=== PATIENT | female | born 1975 | race American Indian/Alaskan Native ===

== ENCOUNTER 2018-11-27 07:25 | Outpatient (CLI) | payer OTHER | END 2018-11-27 07:26 | disposition home or self-care (01) | LOC: LAB 07:25 ==

== ENCOUNTER 2019-01-28 14:20 | Outpatient (CLI) | payer OTHER | END 2019-01-28 14:21 | disposition home or self-care (01) | LOC: RAD 14:20 ==

== ENCOUNTER 2019-02-05 06:54 | Outpatient (CLI) | payer OTHER | END 2019-02-05 06:55 | disposition home or self-care (01) | LOC: LAB 06:54 ==

== ENCOUNTER 2019-02-12 14:23 | Outpatient (CLI) | payer OTHER | END 2019-02-12 14:24 | disposition home or self-care (01) | LOC: LAB 14:23 ==

== ENCOUNTER 2019-02-15 14:04 | Outpatient (CLI) | payer OTHER | END 2019-02-15 14:05 | disposition home or self-care (01) | LOC: LAB 14:04 ==